=== PATIENT | female | born 1970 | race Caucasian/White ===

== ENCOUNTER 2020-06-26 08:41 | Day surgery (SDC) | payer OTHER, SELFPAY ==
[~2020-06-26] VITALS: Ht 149.9 cm; Wt 68.0 kg
== END 2020-06-26 11:29 | disposition home or self-care (01) ==
LOC: MMU 08:41 → MOR 08:41
PROVIDERS: ATTEND Internal Medicine Gastroenterology
DX: Z01.812 Encounter for preprocedural laboratory examination (principal); Z53.8 Procedure and treatment not carried out for other reasons